=== PATIENT | female | born 1995 | race Caucasian/White ===

== ENCOUNTER 2021-03-08 20:19 | Emergency (ER) | payer MEDICAID ==
[~2021-03-08] VITALS: Ht 165.1 cm; Wt 73.0 kg
[2021-03-08] MEDS ORDERED: DIAZEPAM 2 MG TABLET PO ONE (22:15)
[2021-03-08] MEDS ORDERED: PREDNISONE 20MG TABLET PO ONE (22:15)
[2021-03-08] MEDS ORDERED: KETOROLAC 60MG/2ML VIAL IM ONE (22:15)
[2021-03-08 22:32] VITALS: BP 135/84
[2021-03-08] MEDS ORDERED: P20 MT (23:19)
[2021-03-08] MEDS ORDERED: NAPR500T7 MT (23:19)
[2021-03-08] MEDS ORDERED: DIAZ2TAB MT (23:19)
== END 2021-03-08 23:20 | disposition home or self-care (01) ==
LOC: ER 20:19
DX: M54.32 Sciatica, left side (principal); E11.9 Type 2 diabetes mellitus without complications
CPT/HCPCS: 81025; 96372; 99283; J1885; J7512